=== PATIENT | male | born 1995 | race American Indian/Alaskan Native ===

== ENCOUNTER 2021-03-07 11:25 | Emergency (ER) | payer SELFPAY ==
--- NOTE | 2021-03-07 13:48 | Emergency Department Report ---
- General Chief Complaint: Upper Respiratory Infection Stated Complaint: HEADACHE/COUGH/FATIGUE Time Seen by Provider: 03/07/21 13:18 Source: patient Mode of arrival: Ambulatory Limitations: No Limitations - History of Present Illness Initial Comments: 25-year-old male who denies any significant past medical history presents to the ER today with complaints of "I think I have Covid "and is requesting a COVID-19 test. Patient states that for the past couple days he has been having headache, nasal congestion, fatigue, productive cough, and pain in his chest mainly when he coughs, chest tightness and some shortness of breath. Reports having some diarrhea but no abdominal pain, or vomiting. He denies any fever or chills. He denies any known exposures to Covid or any other ill contacts. 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 Denies any wheezing, lower extremity pain or calf swelling. Denies any tobacco use. MD Complaint: cough, nasal congestion, other ([place] ) -: Gradual - Related Data Previous Rx's Medication Instructions Recorded Last Taken Type Albuterol Mdi (or & Nicu Only) 2 puff IH QID PRN #8.5 gram 03/07/21 Unknown Rx [ProAir HFA Inhaler] Ibuprofen [Motrin] 600 mg PO Q8H PRN #30 tablet 03/07/21 Unknown Rx Allergies Allergy/AdvReac Type Severity Reaction Status Date / Time No Known Allergies Allergy Verified 03/07/21 12:16 ED Review of Systems ROS: Stated complaint: HEADACHE/COUGH/FATIGUE Other details as noted in HPI Comment: All other systems reviewed and negative Constitutional: denies: chills, fever Eyes: denies: eye pain, eye discharge, vision change Respiratory: cough, shortness of breath. denies: SOB with exertion, SOB at rest, wheezing Cardiovascular: chest pain (Mainly when he coughs) Gastrointestinal: denies: abdominal pain, nausea, vomiting, constipation, hematemesis, hematochezia Genitourinary: denies: urgency, dysuria, frequency, hematuria, discharge, testicular pain, testicular mass Musculoskeletal: denies: back pain, joint swelling, arthralgia Skin: denies: rash, lesions, change in color, change in hair/nails, pruritus Neurological: denies: headache, weakness, numbness, paresthesias, confusion, abnormal gait, vertigo Psychiatric: denies: anxiety, depression, auditory hallucinations, visual hallucinations, homicidal thoughts, suicidal thoughts Hematological/Lymphatic: denies: easy bleeding, easy bruising, swollen glands ED Past Medical Hx - Medications Home Medications: Home Medications Medication Instructions Recorded Confirmed Last Taken Type Albuterol Mdi (or & Nicu Only) 2 puff IH QID PRN #8.5 gram 03/07/21 Unknown Rx [ProAir HFA Inhaler] Ibuprofen [Motrin] 600 mg PO Q8H PRN #30 tablet 03/07/21 Unknown Rx ED Physical Exam - General Limitations: No Limitations ED Course Vital Signs 03/07/21 12:15 Temperature 98.8 F Pulse Rate 76 Respiratory 18 Rate Blood Pressure 100/69 [Right] O2 Sat by Pulse 100 Oximetry ED Medical Decision Making - Medical Decision Making Patient presented to the ER with concerns for COVID-19. Patient states that he is mainly here for COVID-19 test. Informed patient that unfortunately at this time we are not doing with 19 test through the ER, but we have to give him a list of local clinics that he can follow-up with to get a Covid test. He can also try to follow-up with local pharmacy or urgent care to get it done. Patient is well-appearing, nontoxic and not in any significant pain or respiratory distress. His chest is clear to auscultation. He has no meningeal signs on exam. He has a soft nontender abdomen. He is neurologically intact with a normal gait. He appears well-hydrated. His vital signs are completely normal. Discussed with patient that treatment at this time will begin to his symptoms, discussed treatment plan with patient. Recommend lots of fluids. Patient expressed understanding of all instructions and agree with plan. Patient stable at time of discharge. Critical care attestation.: If time is entered above; I have spent that time in minutes in the direct care of this critically ill patient, excluding procedure time. ED Disposition Clinical Impression: Viral illness, Suspected COVID-19 virus infection Disposition: HOME / SELF CARE / HOMELESS Is pt being admited?: No Does the pt Need Aspirin: No Condition: Stable Instructions: Viral Respiratory Infection, [id number] Additional Instructions: Your symptoms could be related to a nonspecific viral illness, but I do recommend that you get a COVID-19 test which she can get done at any local urgent care or pharmacy. You can continue taking [id number] cough cold medications. Take Tylenol and ibuprofen as needed for any pain. Use albuterol inhaler to help with any chest tightness or shortness of breath. Recommend that she get a monitor to check her temperature and you can alternate Tylenol and ibuprofen for any fever. Recommend drinking lots of fluids. Take multivitamin daily vitamin C, vitamin D and zinc. Follow-up with your PCP. Return to the ER if symptoms worsens or changes in any way Prescriptions: Ibuprofen [Motrin] 600 mg PO Q8H PRN #30 tablet PRN Reason: Pain Albuterol Mdi (or & Nicu Only) [ProAir HFA Inhaler] 2 puff IH QID PRN #8.5 gram PRN Reason: Shortness Of Breath Referrals: JENNIFER HERMAN MD [Staff Physician] - 3-5 Days Forms: Work/School Release Form(ED) Time of Disposition: 13:48
[2021-03-07 14:19] VITALS: BP 103/68
== END 2021-03-07 14:19 | disposition home or self-care (01) ==
LOC: ED 11:25
DX: B34.9 Viral infection, unspecified (principal); Z20.822 Contact with and (suspected) exposure to COVID-19
CPT/HCPCS: 99282

== ENCOUNTER 2021-09-22 18:08 | Emergency (ER) | payer SELFPAY ==
[2021-09-22 18:21] VITALS: BP 112/60
== END 2021-09-23 08:47 | disposition left against medical advice (07) ==
LOC: ED 18:08
DX: J11.1 Influenza due to unidentified influenza virus with other respiratory manifestations (principal); Z53.21 Procedure and treatment not carried out due to patient leaving prior to being seen by health care provider